=== PATIENT | male | born 1960 | race African-American/Black ===

== ENCOUNTER 2017-09-30 09:25 | Inpatient (IN) ==
[2017-09-30] MEDS ORDERED: MAGNESIUM SULF RIDER 2 GM in PREMIX 1 EACH IV PRN ×2 (11:26→12:18)
[2017-09-30] MEDS ORDERED: ONDANSETRON 4 MG/2 ML VIAL IV PRN (11:26)
[2017-09-30] MEDS ORDERED: DOCUSATE SODIUM 100 MG CAPSULE PO PRN (11:26)
[2017-09-30] MEDS ORDERED: ACETAMINOPHEN 325 MG TABLET PO PRN (11:26)
[2017-09-30] MEDS ORDERED: diphenhydrAMINE CAP 25 MG CAPSULE PO PRN (11:26)
[2017-09-30] MEDS ORDERED: LACTULOSE 20 GM/30 ML UDCUP PO PRN (11:26)
[2017-09-30] MEDS ORDERED: POTASSIUM CHLORIDE 20 MEQ TABLET PO PRN (11:26)
[2017-09-30] MEDS ORDERED: MAGNESIUM SULF RIDER 4 GM in PREMIX 1 EACH IV PRN (11:26)
[2017-09-30] MEDS ORDERED: ZALEPLON 5 MG CAPSULE PO PRN (11:26)
[2017-09-30] MEDS ORDERED: guaiFENesin/DM ER 600-30 MG TABLET PO PRN (11:26)
[2017-09-30] MEDS ORDERED: AMIODARONE INJ 450 MG in DEXTROSE 5% 241 ML IV SCH (12:00)
[2017-09-30] MEDS ORDERED: POTASSIUM CHLORIDE RIDER 10 MEQ in PREMIX 1 EACH IV PRN (12:18)
[2017-09-30] MEDS: PANTOPRAZOLE 40 MG TABLET PO SCH (12:24)
[2017-09-30 12:30] LABS: Basophils % 0.3 % (0.0-0.8); Eosinophils # 0.1 10*3/uL (0.0-0.87); Eosinophils % 1.7 % (0.00-10.9); Hematocrit 40.2 VOL% (42.0-52.0); Hemoglobin 13.5 GM/DL (14.0-18.0); Immature Granulocytes % 0.3 %; Immature Granulocytes Absolute 0.02 #; Lymphocytes # 1.8 10*3/uL (1.4-4.0); Lymphocytes % 26.9 % (21.2-54.2); Mean Corpuscular HGB Conc 33.6 GM/DL (32-36); Mean Corpuscular Hemoglobin 30 PG (27-34); Mean Corpuscular Volume 89.5 FL (87-102); Mean Platelet Volume 11.7 FL (9.6-12.0); Monocytes # 0.4 10*3/uL (0.11-0.8); Monocytes % 5.9 % (1.7-12.7); Neutrophils # 4.3 10*3/uL (1.4-7.4); Neutrophils % 64.9 % (38.7-73.9); Platelet Count 181 T/CUMM (130-400); Red Blood Count 4.49 MC/CUMM (3.8-5.5); Red Cell Distribution Width 14.6 % (9.3-17.3); White Blood Count 6.6 T/CUMM (4-12)
[2017-09-30] MEDS ORDERED: HEPARIN/NACL 0.9% 2 UNITS/ML 1,000 ML IV ONE (12:31)
[2017-09-30] MEDS ORDERED: diphenhydrAMINE CAP 25 MG CAPSULE PO ONE (12:35)
[2017-09-30] MEDS ORDERED: DIAZEPAM 5 MG TABLET PO ONE (12:35)
[2017-09-30 12:39] LABS: CKMB % 12.7 %
[2017-09-30 12:46] LABS: Osmolality,Calculated 277.5 MOS/KG (273-304); Potassium 3.8 MMOL/L (3.5-5.1)
[2017-09-30] MEDS ORDERED: MIDAZOLAM 2 MG/2 ML VIAL ONE ×2 (12:53→13:30)
[2017-09-30] MEDS ORDERED: fentaNYL 100 MCG/2 ML VIAL ONE (12:54)
[2017-09-30] MEDS ORDERED: BIVALIRUDIN 250 MG VIAL IV ONE (13:19)
[2017-09-30] MEDS ORDERED: NITROGLYCERIN DRIP 50 MG/250 ML BOTTLE IV ONE (13:48)
[2017-09-30] MEDS ORDERED: TICAGRELOR 90 MG TABLET ONE (14:00)
[2017-09-30] MEDS ORDERED: MORPHINE 4 MG/1 ML VIAL IV PRN (14:29)
[2017-09-30] MEDS ORDERED: NITROGLYCERIN SL 0.4 MG TABLET SL PRN (14:29)
[2017-09-30] MEDS ORDERED: ACETAMINOPHEN/CODEINE 300-30 MG TABLET PO PRN (14:29)
[2017-09-30] MEDS ORDERED: SODIUM CHLORIDE 0.45% 1,000 ML IV SCH (14:30)
[2017-09-30 16:50] LABS: CKMB % 11.6 %; Troponin I Only 90.7 NG/ML (0.00-0.045)
[2017-09-30] MEDS: AMIODARONE INJ 450 MG in DEXTROSE 5% 241 ML IV SCH (18:34)
[2017-09-30 18:49] LABS: CKMB % 10.8 %; Troponin I Only 76.4 NG/ML (0.00-0.045)
[2017-09-30] MEDS: ROSUVASTATIN 20 MG TABLET PO SCH (21:02)
[2017-09-30] MEDS: TICAGRELOR 90 MG TABLET PO SCH (21:02)
[2017-10-01 06:14] LABS: Calcium 8.8 MG/DL (8.5-10.1); Osmolality,Calculated 282.1 MOS/KG (273-304); Potassium 3.9 MMOL/L (3.5-5.1); Risk Ratio 2.59; Thyroid Stimulating Hormone 1.13 uIU/ml (0.358-3.74); VLDL CHOLESTEROL 30.4 MG/DL
[2017-10-01 06:41] LABS: Basophils % 0.5 % (0.0-0.8); Eosinophils # 0.2 10*3/uL (0.0-0.87); Eosinophils % 2.6 % (0.00-10.9); Hematocrit 39.7 VOL% (42.0-52.0); Hemoglobin 13.2 GM/DL (14.0-18.0); Immature Granulocytes % 0.2 %; Immature Granulocytes Absolute 0.01 #; Lymphocytes # 1.7 10*3/uL (1.4-4.0); Lymphocytes % 26.9 % (21.2-54.2); Mean Corpuscular HGB Conc 33.2 GM/DL (32-36); Mean Corpuscular Hemoglobin 30 PG (27-34); Mean Platelet Volume 11.8 FL (9.6-12.0); Monocytes # 0.4 10*3/uL (0.11-0.8); Monocytes % 7.1 % (1.7-12.7); Neutrophils # 3.9 10*3/uL (1.4-7.4); Neutrophils % 62.7 % (38.7-73.9); Platelet Count 173 T/CUMM (130-400); Red Blood Count 4.41 MC/CUMM (3.8-5.5); Red Cell Distribution Width 14.5 % (9.3-17.3); White Blood Count 6.2 T/CUMM (4-12)
[2017-10-01] MEDS: ASPIRIN EC 81 MG TABLET PO SCH (08:49)
[2017-10-01] MEDS: TICAGRELOR 90 MG TABLET PO SCH ×2 (08:49→21:56)
[2017-10-01] MEDS: VALSARTAN 80 MG TABLET PO SCH (08:49)
[2017-10-01] MEDS: PANTOPRAZOLE 40 MG TABLET PO SCH (08:50)
[2017-10-01] MEDS ORDERED: CARVEDILOL 3.125 MG TABLET PO SCH (09:00)
[2017-10-01] MEDS ORDERED: CARVEDILOL 3.125 MG TABLET PO ONE (09:50)
[2017-10-01] MEDS ORDERED: AMIODARONE 200 MG TABLET PO SCH (10:00)
[2017-10-01 10:58] LABS: CKMB % 5.7 %
[2017-10-01 11:04] LABS: Troponin I Only 32.7 NG/ML (0.00-0.045)
[2017-10-01] MEDS: AMIODARONE INJ 450 MG in DEXTROSE 5% 241 ML IV SCH (12:39)
[2017-10-01] MEDS: AMIODARONE 200 MG TABLET PO SCH ×2 (13:16→21:56)
[2017-10-01] MEDS: CARVEDILOL 6.25 MG TABLET PO SCH (17:14)
[2017-10-01] MEDS: ROSUVASTATIN 20 MG TABLET PO SCH (21:56)
[2017-10-02 03:54] LABS: Basophils % 0.3 % (0.0-0.8); Eosinophils # 0.1 10*3/uL (0.0-0.87); Hematocrit 39.4 VOL% (42.0-52.0); Hemoglobin 13.4 GM/DL (14.0-18.0); Immature Granulocytes % 0.3 %; Immature Granulocytes Absolute 0.02 #; Lymphocytes # 1.8 10*3/uL (1.4-4.0); Lymphocytes % 30.3 % (21.2-54.2); Mean Corpuscular Hemoglobin 30 PG (27-34); Mean Corpuscular Volume 87.2 FL (87-102); Mean Platelet Volume 11.1 FL (9.6-12.0); Monocytes # 0.5 10*3/uL (0.11-0.8); Monocytes % 7.6 % (1.7-12.7); Neutrophils # 3.6 10*3/uL (1.4-7.4); Neutrophils % 59.5 % (38.7-73.9); Platelet Count 172 T/CUMM (130-400); Red Blood Count 4.52 MC/CUMM (3.8-5.5); Red Cell Distribution Width 14.5 % (9.3-17.3)
[2017-10-02 04:25] LABS: Calcium 9.3 MG/DL (8.5-10.1); Osmolality,Calculated 280.3 MOS/KG (273-304); Potassium 3.9 MMOL/L (3.5-5.1)
[2017-10-02] MEDS: CARVEDILOL 6.25 MG TABLET PO SCH (08:37)
[2017-10-02] MEDS: VALSARTAN 80 MG TABLET PO SCH (08:37)
[2017-10-02] MEDS: TICAGRELOR 90 MG TABLET PO SCH (08:37)
[2017-10-02] MEDS: AMIODARONE 200 MG TABLET PO SCH (08:38)
[2017-10-02] MEDS: ASPIRIN EC 81 MG TABLET PO SCH (08:38)
[2017-10-02 09:07] LABS: CKMB % 2.1 %
[2017-10-02 09:09] LABS: Troponin I Only 23.9 NG/ML (0.00-0.045)
[2017-10-02] MEDS: PANTOPRAZOLE 40 MG TABLET PO SCH (10:47)
[2017-10-02 12:05] VITALS: BP 127/77
== END 2017-10-02 17:02 | disposition home or self-care (01) | DRG 247 ==
LOC: N.ICU 11:00 → N.TELEN 10-01 13:00
PROVIDERS: ADMIT Internal Medicine Cardiovascular Disease; ATTEND Internal Medicine Cardiovascular Disease
PROC: CLCCHCL (ICD-10-PCS; 2017-09-30 12:45)